=== PATIENT | male | born 1950 | race Caucasian/White ===

== ENCOUNTER 2016-09-30 18:00 | Emergency (ER) | payer MEDICARE ==
[2016-09-30 18:07] VITALS: TEMP 98.2; BMI 34.8
[2016-09-30] MEDS ORDERED: NS 1,000 ML IV ONE (18:18)
[2016-09-30] MEDS ORDERED: MORPHINE 4 MG/ML INJECTION IV ONE (18:18)
[2016-09-30] MEDS ORDERED: ONDANSETRON HCL 4 MG/2 ML VIAL IV ONE (18:18)
[2016-09-30 18:28] LABS: AUTOMATED EOSINOPHIL 1.3 % (0-5); AUTOMATED LYMPH 31.7 % (17-44); AUTOMATED MONOCYTE 7.8 % (3-10); AUTOMATED NEUTROPHIL 58.2 % (45-76); MPV 8.4 fL (7.4-10.4)
[2016-09-30 18:44] LABS: PARTIAL THROMB. TIME 22.5 SEC (22-35)
[2016-09-30 18:45] LABS: LEUKOCYTES/URINE NEG (NEGATIVE); NITRITE/URINE NEG (NEGATIVE); RBC/URINE 0-2 (0-2); URINE OCCULT BLOOD NEG (NEG/TRACE)
--- NOTE | 2016-09-30 18:59 | DIRPT ---
CLINICAL DATA: Abdominal pain EXAM: CHEST 2 VIEW COMPARISON: 03/06/2016 FINDINGS: Elevated right hemidiaphragm with right lower lobe atelectasis unchanged. Negative for pneumonia. No heart failure or effusion. No change from the prior study IMPRESSION: No active cardiopulmonary disease. Electronically Signed By: Willie Bunn M.D. On: 09/30/2016 18:56
[2016-09-30] MEDS ORDERED: Pharmacy Review for Metformin - IV Contrast Given SCH (19:00)
[2016-09-30 19:03] LABS: BLOOD UREA NITROGEN 29 MG/DL (9-20); CALCIUM 9.9 MG/DL (8.4-10.2); CALCULATED OSMOLALITY 281 MOs/Kg (270-290); CHLORIDE 100 mEq/L (98-107); CPK TOTAL WITH POSSIBLE MB 73 IU/L (55-170); GLUCOSE 268 mg/dL (70-99); SODIUM LEVEL 138 mEq/L (137-146); TOTAL PROTEIN 7.1 G/DL (6.3-8.2)
--- NOTE | 2016-09-30 19:18 | EDPRACDOC ---
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 Location: Reports: RLQ Pain Context: Reports: Spontaneous Pain Severity: Moderate Pain Quality: Reports: Cramping, Sharp, Stabbing Pain Radiation: Reports: No Radiation Adult Abdominal History: Denies: Abdominal Surgery, Urolithiasis, Bowel Obstruction, Similar Pain (dx) Modifying Factors: improves with: Nothing Associated Signs & Symptoms: Denies: Nausea, Frequency, Hematuria, Vomiting, Hematemesis, Anorexia, Diarrhea, Melena, Dysuria, Fever, Urgency, Other, Chills Oral Intake: Normal Urinary Output: Normal <Melinda South W - Last Filed: 09/30/16 20:26> - General Information Chief Complaint: Abdominal Pain Stated Complaint: ABD PAIN hAD RT EYE SURGERY SUNDAY Time Seen by Provider: 09/30/16 18:10 Home Medications: Home Medications Metoprolol Succinate [Toprol Xl] 50 mg PO DAILY 08/21/13 Pantoprazole Sodium [Protonix] 40 mg PO QAM 08/21/13 Aspirin (Enteric Coated) [Halfprin] 81 mg PO DAILY 06/25/14 Insulin Detemir [Levemir] 30 units SQ BID 06/25/14 Lisinopril/Hydrochlorothiazide [Zestoretic 20-12.5 mg Tablet] 1 tab PO DAILY Ferrous Sulfate [Iron] 325 mg PO DAILY 06/20/15 Liraglutide [Victoza 0.6 mg/0.1 ml] 1.2 mg SQ DAILY@0800 06/20/15 Ciprofloxacin HCl [Cipro] 500 mg PO BID #20 tab 09/30/16 Insulin Aspart [Novolog] 0 units SQ .SSI 09/30/16 Metformin HCl 500 mg PO BID 09/30/16 Ondansetron [Zofran Odt] 4 mg PO Q6H PRN #20 tab.rapdis 09/30/16 Probiotic Blend [Kimberley Q] 1 tab PO DAILY 09/30/16 Tramadol HCl [Ultram] 50 mg PO Q6H #14 tab 09/30/16 Allergies/Adverse Reactions: Allergies Allergy/AdvReac Type Severity Reaction Status Date / Time No Known Allergies Allergy Verified 09/30/16 18:07 - History of Present Illness HPI: PT PRESENTS FOR 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 STATES IT IS A SHARP, STABBING , CRAMPING PAIN. DENIES NAUSEA, VOMITING, CHILLS OR FEVER. PT HAS HAD NO PREVIOUS ABDOMINAL SURGERIES. (Melinda South) ED Past Medical History - History Reviewed Yes Nurses notes reviewed and agree except as marked - Patient Medical History Cardiac History: Reports: Hypertension, Heart Attack, Hypercholesterolemia Respiratory History: Reports: Asthma, COPD GI/ History: Reports: Kidney Stones, Gastroesophageal Reflux Musculoskeletal History: Reports: Arthritis Psychological History: Denies: Depression, Substance Use Disorder Systemic History: Reports: Diabetes. Denies: Cancer Additional Past Medical History: MILD MR Surgical History: Reports: Other (Eye surgery.) - Family Medical History Reports: Hypertension, Diabetes (Grandmother.), Cancer (Mother: Colon), Stroke (Mother), Cardiac Disorders (Grandmother with NC.) - Social Medical History Smoking Status: Never smoker Social History: Denies: Cocaine Use, Heroin Use, Marijuana Use, Substance Use Disorder <Melinda South - Last Filed: 09/30/16 20:26> EDM Review of Systems - Review of Systems ROS Negative Except as Marked: Yes All systems reviewed and were negative except as marked <Melinda South - Last Filed: 09/30/16 20:26> - Physical Exam Constitutional: Alert Oriented to: Time, Person, Place - HEENT Head: Normal ( normocephalic) Eye Exam: Normal (PERRL, EOMI, Sclera white) Oropharynx: Normal (Pharynx:Moist without exudate,Gums-no swelling) Nose: No Symptoms Reported (septum midline) Neck: Normal (FROM, trachea at midline) - Respiratory/Cardiovascular Respiratory: Normal - CTA (BBS clear to auscultation without adventitious sounds ) Cardiovascular: Normal (RRR without murmur, gallop or rub) - GI Auscultation: Normal (NABS) Palpation: Normal (Soft,No rebound or guarding, non distended) Tenderness: Moderate, RLQ Nails's Sign: Negative Rectal Exam: Deferred - Musculoskeletal Back: Normal (Non-Tender) Extremities: Normal (Normal tone, Pulses 2+ No cyanosis or edema, FROM) - Integumentary Skin: Normal, Warm, Dry Lymphatics: Normal (no adenopathy) - Neurologic Memory Impaired: Normal Motor Function: Normal (Normal tone, Pulses 2+ No cyanosis or edema, FROM) Cranial Nerve: Normal (CN II-X11 intact sensation, strength 5/5) Cerebellar: Normal Mood Description: Normal Perception: Normal <Melinda South - Last Filed: 09/30/16 20:26> - Physical Exam Last recorded Vital Signs: Last Vital Signs Temp 98.2 F 09/30/16 18:05 Pulse 89 09/30/16 19:00 Resp 20 09/30/16 19:00 BP 150/80 09/30/16 19:00 Pulse Ox 95 09/30/16 20:16 Oxygen Pulse Oxygen Saturation 95 O2 Device Venturi Mask Oxygen Flow Rate 8 Fraction of Inspired Oxygen ( 40 FIO2) (Bessie Gil) (Melinda South) - Results 09/30/16 18:25 09/30/16 18:25 - Diagnostic Imaging Abdomen Image interpreted by: Radiologist <Bessie Gil - Last Filed: 09/30/16 20:14> - Differential Diagnosis Appendicitis, Constipation - Results All Results Reviewed and Normal except as Highlighted below: Yes 09/30/16 18:25 09/30/16 18:25 - EKG EKG #1 EKG Time: 18:28 -: Yes EKG interpreted by me Rate: bpm: 89 [place]: Normal Rhythm: NSR Block: None Hypertrophy: None ST: Normal <Melinda South - Last Filed: 09/30/16 20:26> - Results WBC 16.1 xk/uL (3.8-10.8) H 09/30/16 18:25 RBC 5.25 xM/uL (4.70-6.10) 09/30/16 18:25 Hgb 14.9 g/dL (14.0-18.0) 09/30/16 18:25 Hct 44.7 % (42-52) 09/30/16 18:25 MCV 85 fL (80-94) 09/30/16 18:25 MCH 28.4 pg (27-32) 09/30/16 18:25 MCHC 33.4 g/dl (33-36) 09/30/16 18:25 RDW 14.0 % (11.5-14.5) 09/30/16 18:25 Plt Count 280 xk/uL (130-400) 09/30/16 18:25 MPV 8.4 fL (7.4-10.4) 09/30/16 18:25 Neut % (Auto) 58.2 % (45-76) 09/30/16 18:25 Lymph % (Auto) 31.7 % (17-44) 09/30/16 18:25 [place] % (Auto) 7.8 % (3-10) 09/30/16 18:25 Eos % (Auto) 1.3 % (0-5) 09/30/16 18:25 Baso % (Auto) 1.0 % (0-2) 09/30/16 18:25 Absolute Neuts (auto) 9.34 xk/uL (1.7-8.2) H 09/30/16 18:25 Absolute Lymphs (auto) 4.99 xk/uL (0.65-4.75) H 09/30/16 18:25 PT 10.6 SEC (9.2-11.2) 09/30/16 18:25 INR 1.0 09/30/16 18:25 APTT 22.5 SEC (22-35) 09/30/16 18:25 Sodium 138 mEq/L (137-146) 09/30/16 18:25 Potassium 5.0 mEq/L (3.5-5.1) 09/30/16 18:25 Chloride 100 mEq/L (98-107) 09/30/16 18:25 Carbon Dioxide 23 mMOL/L (22-33) 09/30/16 18:25 Anion Gap 20 mEq/L (8-16) H 09/30/16 18:25 BUN 29 MG/DL (9-20) H 09/30/16 18:25 Creatinine 1.50 MG/DL (0.66-1.25) H 09/30/16 18:25 Estimated GFR (MDRD) 47 mL/min (>=60) L 09/30/16 18:25 Glucose 268 mg/dL (70-99) H 09/30/16 18:25 Calculated Osmolality 281 MOs/Kg (270-290) 09/30/16 18:25 Calcium 9.9 MG/DL (8.4-10.2) 09/30/16 18:25 Total Bilirubin 0.6 MG/DL (0.2-1.3) 09/30/16 18:25 AST 33 IU/L (17-59) 09/30/16 18:25 ALT 52 IU/L (21-72) 09/30/16 18:25 Alkaline Phosphatase 92 IU/L (50-160) 09/30/16 18:25 Creatine Kinase 73 IU/L (55-170) 09/30/16 18:25 Troponin I < 0.01 ng/mL (<.04) 09/30/16 18:25 Wby-S-Ycpnxlnoncr Pept 129 pg/mL (0-900) 09/30/16 18:25 Total Protein 7.1 G/DL (6.3-8.2) 09/30/16 18:25 Albumin 4.4 G/DL (3.5-5.0) 09/30/16 18:25 Urine Color Yellow 09/30/16 18:30 Urine Clarity Clear 09/30/16 18:30 Urine pH 5.0 (5.0-8.0) 09/30/16 18:30 Ur Specific [place] 1.020 (1.003-1.035) 09/30/16 18:30 Urine Protein Neg (NEG/TRACE) 09/30/16 18:30 Urine Glucose (UA) 3+ (NEGATIVE) 09/30/16 18:30 Urine Ketones Neg (NEGATIVE) 09/30/16 18:30 Urine Occult Blood Neg (NEG/TRACE) 09/30/16 18:30 Urine Nitrite Neg (NEGATIVE) 09/30/16 18:30 Urine Bilirubin Neg (NEGATIVE) 09/30/16 18:30 Urine Urobilinogen <2.0 MG/DL (0-1) 09/30/16 18:30 Ur Leukocyte Esterase Neg (NEGATIVE) 09/30/16 18:30 Urine RBC 0-2 (0-2) 09/30/16 18:30 Urine WBC 2-5 (0-2) H 09/30/16 18:30 Ur Epithelial Cells 1+ 09/30/16 18:30 Urine Bacteria Few (NEG/FEW) 09/30/16 18:30 Hyaline Casts 10-20 (0-2) H 09/30/16 18:30 Urine Mucus Occ (NEG/OCC) 09/30/16 18:30 Lab Results 09/30/16 09/30/16 09/30/16 18:30 18:25 18:25 WBC 16.1 H RBC 5.25 Hgb 14.9 Hct 44.7 MCV 85 MCH 28.4 MCHC 33.4 RDW 14.0 Plt Count 280 MPV 8.4 Neut % (Auto) 58.2 Lymph % (Auto) 31.7 [place] % (Auto) 7.8 Eos % (Auto) 1.3 Baso % (Auto) 1.0 Absolute Neuts (auto) 9.34 H Absolute Lymphs (auto) 4.99 H PT 10.6 INR 1.0 APTT 22.5 Sodium Potassium Chloride Carbon Dioxide Anion Gap BUN Creatinine Estimated GFR (MDRD) Glucose Calculated Osmolality Calcium Total Bilirubin AST ALT Alkaline Phosphatase Creatine Kinase Troponin I Ihv-F-Ndxxztycpts Pept Total Protein Albumin Urine Color Yellow Urine Clarity Clear Urine pH 5.0 Ur Specific [place] 1.020 Urine Protein Neg Urine Glucose (UA) 3+ Urine Ketones Neg Urine Occult Blood Neg Urine Nitrite Neg Urine Bilirubin Neg Urine Urobilinogen <2.0 Ur Leukocyte Esterase Neg Urine RBC 0-2 Urine WBC 2-5 H Ur Epithelial Cells 1+ Urine Bacteria Few Hyaline Casts 10-20 H Urine Mucus Occ 09/30/16 18:25 WBC RBC Hgb Hct MCV MCH MCHC RDW Plt Count MPV Neut % (Auto) Lymph % (Auto) [place] % (Auto) Eos % (Auto) Baso % (Auto) Absolute Neuts (auto) Absolute Lymphs (auto) PT INR APTT Sodium 138 Potassium 5.0 Chloride 100 Carbon Dioxide 23 Anion Gap 20 H BUN 29 H Creatinine 1.50 H Estimated GFR (MDRD) 47 L Glucose 268 H Calculated Osmolality 281 Calcium 9.9 Total Bilirubin 0.6 AST 33 ALT 52 Alkaline Phosphatase 92 Creatine Kinase 73 Troponin I < 0.01 Unj-B-Qwdksuwzecb Pept 129 Total Protein 7.1 Albumin 4.4 Urine Color Urine Clarity Urine pH Ur Specific [place] Urine Protein Urine Glucose (UA) Urine Ketones Urine Occult Blood Urine Nitrite Urine Bilirubin Urine Urobilinogen Ur Leukocyte Esterase Urine RBC Urine WBC Ur Epithelial Cells Urine Bacteria Hyaline Casts Urine Mucus (Bessie Gil) (Melinda South) - Diagnostic Imaging Abdomen 09/30/16 20:14 Patient Name: CHICA ARAUZ LOC: ED : 1950 AGE: 66 Order Date:09/30/16 Date of Service:12/11 Report # [id number] Ord Physician: Melinda South [employer]-BC Exam # [id number] Emergency Physician: Bessie Gil MD Exam(s): [id number] CT/CT ABD-PELV W/IV CM CLINICAL DATA: Sudden onset of right lower quadrant abdominal pain this afternoon. EXAM: CT ABDOMEN AND PELVIS WITH CONTRAST TECHNIQUE: Multidetector CT imaging of the abdomen and pelvis was performed using the standard protocol following bolus administration of intravenous contrast. CONTRAST: 100 mL Isovue 370 IV COMPARISON: Ultrasound and CT 12/07/2015 FINDINGS: Lower chest: Elevation of right hemidiaphragm with adjacent atelectasis. Coronary artery calcifications are seen. Liver: Diffusely decreased density consistent with steatosis. Mild fatty sparing adjacent to the gallbladder fossa. Hepatobiliary: Gallbladder is decompressed, no calcified stone. No biliary dilatation. Pancreas: No ductal dilatation or inflammation. Spleen: Normal. Tiny splenule about the hilum. Adrenal glands: No nodule. Kidneys: Symmetric renal enhancement. No hydronephrosis. Unchanged subcentimeter left renal cyst. Stomach/Bowel: Stomach physiologically distended. There are no dilated or thickened small bowel loops. Small volume of stool throughout the colon without colonic wall thickening. Mild distal colonic diverticulosis without diverticulitis. The appendix is normal. Vascular/Lymphatic: No retroperitoneal adenopathy. Abdominal aorta is normal in caliber. Atherosclerosis of the abdominal aorta without aneurysm. Reproductive: Normal for age. Bladder: Physiologically distended, no wall thickening. Other: No free air, free fluid, or intra-abdominal fluid collection. Fat in both inguinal canals. Musculoskeletal: There are no acute or suspicious osseous abnormalities. Stable degenerative change in the spine and both hips. IMPRESSION: 1. No acute abnormality in the abdomen/pelvis. Particularly, normal appendix. 2. Unchanged hepatic steatosis and colonic diverticulosis. Electronically Signed By: Cori Chilel M.D. On: 09/30/2016 20:09 Electronically Signed By: Cori Chilel MD Electronically Signed Date/Time: [id number] Dictate Date/Time: 09/30/162000 Technologist: Valeria Gil Transcribed By: Nik Transcribed Date/Time: 09/30/162008 (Bessie Gil) <Bessie Gil - Last Filed: 09/30/16 20:14> Decision Time to Discharge: 20:23 - Departure Disposition: Home Education/Counseling Given To: Patient Education/Counseling Given Regarding: Diagnosis, Treatment, Prognosis, Follow Up <Melinda South - Last Filed: 09/30/16 20:26> - Departure Condition: Stable Final Diagnosis: Abdominal pain Diverticulosis Qualifiers: Diverticulosis site: unspecified location Diverticulosis bleeding: diverticulosis without bleeding Qualified Code(s): K57.90 - Diverticulosis of intestine, part unspecified, without perforation or abscess without bleeding Instructions: Diverticulosis (ED), Diverticulitis Diet (ED), Abdominal Pain (ED ) Referrals: Jose De Paz MD [Primary Care Provider] - One Week Prescriptions: New Ciprofloxacin HCl [Cipro] 500 mg PO BID #20 tab Ondansetron [Zofran Odt] 4 mg PO Q6H PRN #20 tab.rapdis PRN Reason: Nausea/Vomiting Tramadol HCl [Ultram] 50 mg PO Q6H #14 tab No Action Metoprolol Succinate [Toprol Xl] 50 mg PO DAILY Pantoprazole Sodium [Protonix] 40 mg PO QAM Aspirin (Enteric Coated) [Halfprin] 81 mg PO DAILY Lisinopril/Hydrochlorothiazide [Zestoretic 20-12.5 mg Tablet] 1 tab PO DAILY Insulin Detemir [Levemir] 30 units SQ BID Liraglutide [Victoza 0.6 mg/0.1 ml] 1.2 mg SQ DAILY@0800 Ferrous Sulfate [Iron] 325 mg PO DAILY Metformin HCl 500 mg PO BID Insulin Aspart [Novolog] 0 units SQ .SSI Probiotic Blend [Ikmberley Q] 1 tab PO DAILY Additional Instructions: INCREASE FLUID INTAKE. FOLLOW UP WITH PRIMARY CARE PROVIDER NEXT WEEK. TAKE ALL ANTIBIOTICS PRESCRIBED. RETURN TO THE ED FOR WORSENING SYMPTOMS OR CONCERNS.
--- NOTE | 2016-09-30 20:11 | DIRPT ---
CLINICAL DATA: Sudden onset of right lower quadrant abdominal pain this afternoon. EXAM: CT ABDOMEN AND PELVIS WITH CONTRAST TECHNIQUE: Multidetector CT imaging of the abdomen and pelvis was performed using the standard protocol following bolus administration of intravenous contrast. CONTRAST: 100 mL Isovue 370 IV COMPARISON: Ultrasound and CT 12/07/2015 FINDINGS: Lower chest: Elevation of right hemidiaphragm with adjacent atelectasis. Coronary artery calcifications are seen. Liver: Diffusely decreased density consistent with steatosis. Mild fatty sparing adjacent to the gallbladder fossa. Hepatobiliary: Gallbladder is decompressed, no calcified stone. No biliary dilatation. Pancreas: No ductal dilatation or inflammation. Spleen: Normal. Tiny splenule about the hilum. Adrenal glands: No nodule. Kidneys: Symmetric renal enhancement. No hydronephrosis. Unchanged subcentimeter left renal cyst. Stomach/Bowel: Stomach physiologically distended. There are no dilated or thickened small bowel loops. Small volume of stool throughout the colon without colonic wall thickening. Mild distal colonic diverticulosis without diverticulitis. The appendix is normal. Vascular/Lymphatic: No retroperitoneal adenopathy. Abdominal aorta is normal in caliber. Atherosclerosis of the abdominal aorta without aneurysm. Reproductive: Normal for age. Bladder: Physiologically distended, no wall thickening. Other: No free air, free fluid, or intra-abdominal fluid collection. Fat in both inguinal canals. Musculoskeletal: There are no acute or suspicious osseous abnormalities. Stable degenerative change in the spine and both hips. IMPRESSION: 1. No acute abnormality in the abdomen/pelvis. Particularly, normal appendix. 2. Unchanged hepatic steatosis and colonic diverticulosis. Electronically Signed By: Cori Chilel M.D. On: 09/30/2016 20:09
[2016-09-30] MEDS ORDERED: CIPROFLOXACIN HCL 500 MG TAB PO ONE (20:26)
[2016-09-30 21:02] VITALS: BP 138/74; PULSE 84
== END 2016-09-30 20:45 | disposition home or self-care (01) ==
LOC: ED 18:00
DX: K57.90 Diverticulosis of intestine, part unspecified, without perforation or abscess without bleeding (principal)
CPT/HCPCS: 36415; 71020; 74177; 80053; 81001; 82550; 83880; 84484; 85025; 85610; 85730; 93005; 96361; 96374; 99284; A9270; A9698; J2405; J2270; J3490